=== PATIENT | female | born 1955 | race African-American/Black ===

== ENCOUNTER → 2017-10-26 | Outpatient (CLI) | payer OTHER ==
[~2017-10-26] MED LIST: BIOT1000 PO; BIOT10TA PO; CALCTAB80 PO; CIME400T; CIME400T PO; ESTR2TAB; ESTR2TAB4 PO; MULTTAB67 PO; VITA-142 PO; VITA500T83 PO
--- NOTE | 2017-10-26 15:14 | RADRPT ---
EXAM DATE/TIME: 10/26/2017 12:03 [place] COMPARISON: No previous studies available for comparison. INDICATIONS : Evaluate for pneumonia, pneumothorax or communicable disease pre surgery 11/07/17 Excision right ventral vulvar mass MEDICAL HISTORY : Cardiovascular disease. SURGICAL HISTORY : None. ENCOUNTER: Initial ACUITY: 1 day PAIN SCORE: 0/10 LOCATION: Bilateral chest FINDINGS: Frontal and lateral views of the chest demonstrates a normal-sized cardiac silhouette with tortuous d escending thoracic aorta secondary to the scoliosis. The lungs are clear without effusion, consolidat ion, or pneumothorax. Bones and soft tissues demonstrate no acute finding. There is severe S-shaped t horacic and lumbar scoliosis. CONCLUSION: 1. No acute cardiopulmonary abnormality is identified. 2. Severe S-shaped thoracolumbar scoliosis. Ezequiel Pratt MD on October 26, 2017 at 15:10 Board Certified Radiologist. This report was verified electronically.
--- NOTE | 2017-10-27 20:01 | EKG ---
Date Performed: 10/26/2017 Time Performed: 11:15:59 PTAGE: 62 years EKG: Sinus rhythm POSSIBLE LEFT ATRIAL ENLARGEMENT BORDERLINE LEFT AXIS DEVIATION INCOMPLETE RIGHT BUNDLE BRANCH BLOCK BORDERLINE ECG Since the PREVIOUS TRACING , no significant change noted PREVIOUS TRACIN01/10/2006 00.46 DOCTOR: Vlad Dickson Interpretating Date/Time 10/27/2017 19:59:36
== END ==
LOC: CPRE 10:53
PROVIDERS: ATTEND Obstetrics & Gynecology Gynecologic Oncology
DX: Z01.810 Encounter for preprocedural cardiovascular examination (principal); Z01.811 Encounter for preprocedural respiratory examination; N90.89 Other specified noninflammatory disorders of vulva and perineum; R94.31 Abnormal electrocardiogram [ECG] [EKG]
CPT/HCPCS: 71046; 93005

== ENCOUNTER → 2017-11-07 | Day surgery (SDC) | payer OTHER ==
[~2017-11-07] VITALS: Ht 162.6 cm; Wt 91.4 kg
[~2017-11-07] MED LIST changes: -BIOT1000 PO; +CHLORHEXIDINE GLUCONATE 2 % 1 PACK (2 CLOTHS) TOPICAL PRN; -CIME400T; +DEXAMETHASONE SOD PHOS 4 MG/ML VIAL IV ONE; +DO NOT ADM ANY ANTICOAGULANT DRUGS PRN; -ESTR2TAB; +KETOROLAC TROMETHAMINE 30 MG/ML (IVP) VIAL IV PUSH ONE; +KETOROLAC TROMETHAMINE 30 MG/ML (IVP) VIAL ONE; +LACTATED RINGER'S 1000 ML INJ 1,000 ML IV ONE; +LACTATED RINGER'S 1000 ML IV PRN; +LIDOCAINE 1%/EPINEPHrine 1:100,000 SOLN 30 ML VIAL ONE; +LIDOCAINE HCL 1% PF 5 ML SYRINGE OTHER ONE; +METOPROLOL TARTRATE 25 MG TAB PO PRN; +MIDAZOLAM HCL 2 MG/2 ML VIAL ONE; +ONDANSETRON HCL 4 MG/2 ML VIAL IV ONE; +PHENYLEPH/NS 1000 MCG/10 ML SYR IV ONE; +POVIDONE IODINE 5% (ANTISEPSIS KIT) 4 APPLICATIONS EACH NARE PRN; +PROPOFOL 200 MG/20 ML AMP IV ONE; +ROCURONIUM INJ 50 MG/5 ML SYRINGE IV PUSH ONE; +SODIUM CHLORID 0.9% 500 ML IV PRN; +ceFAZolin INJ 1,000 MG VIAL IV ONE; +ePHEDrine/NS 25 MG/5 ML SYRINGE IV ONE; +oxyCODONE/ACETAMINOPHEN 5 MG/325 MG TAB PO PRN
--- NOTE | 2017-11-07 14:40 | MP ---
cc: Jane Pollack MD, Zachary S MD DATE OF OPERATION: 11/07/2017 PREOPERATIVE DIAGNOSIS: Right ventral vulvovaginal mass. POSTOPERATIVE DIAGNOSIS: Right ventral vulvovaginal mass. PROCEDURE: Examination under anesthesia, excision of right vulvovaginal mass. SURGEON: Jane Pollack MD [employer] CLEAN[employer] SUPERVISOR: Eunice certified surgical tech/first assistant. ANESTHESIA: Laryngeal mask anesthesia. ESTIMATED BLOOD LOSS: 20 mL HISTORY: A 62-year-old female who has noticed a prominent bulge or mass-like effect in the ventral right vulvovaginal area that has gradually increased. She would estimate many months, perhaps even 2 years, but became more prominent in recent months, to the point that it is troubling her and the mass effect is causing a deviation to the stream of her urine when she voids and she sought evaluation. She was seen and evaluated initially by Dr. Rome Raya and was referred to [facility] where she was counseled. CT imaging did not show any overt evidence of metastatic disease and it confirmed that this was not an unusual manifestation of a hernia. No adenopathy or other abnormalities. The mass itself clinically measured about 2.5 cm in diameter. The consistency was somewhat spongy, compressible, but solid, not cystic in nature. It had a smooth surface and smooth borders. She was seen in the preop holding area where the findings are again reviewed. The plan of care was discussed. Questions were asked and answered. She expressed good understanding and agreed. FINDINGS: On exam under anesthesia, the findings were as described on the office exam, approximately 2.5 cm, smooth walled, spongy mass encapsulated in the right ventral vulvovaginal area, possibly an inflamed obstructed periurethral gland or [place] gland. It is uncertain if it is inflammatory or neoplastic and as per our discussion, the plan is for excision. PROCEDURE: She was taken to the operating room and placed in dorsal lithotomy position, after laryngeal mask anesthesia was administered, timeout was undertaken. She was identified by site recognition, hospital ID bracelet and the proposed procedure was reviewed and confirmed. Exam under anesthesia was performed with findings as described above. She was prepped and draped in sterile fashion. Salgado catheter placed in the bladder. Surgical marker was used to josé miguel an area for incision just inside the introitus. Lidocaine, epinephrine was injected in subcutaneous tissue and incision was made overlying the mass. Sharp dissection was used circumferentially to dissect circumferentially around the capsule of the mass and this was continued circumferentially and it was fairly free, filmy adhesions until the base of it where the tissue was more vascular and fibrous and this dissection was extended beyond the mass itself to include what was thought to probably be the gland that was the origin of this mass and a clamp was placed across the base of it and it was removed with sharp dissection. 3-0 Vicryl suture was used to render this hemostatic and the deep layers of the incision bed were reapproximated with interrupted 3-0 Vicryl sutures until there was complete hemostasis and the skin and mucosal edges were in close proximity without tension. The skin and mucosal edges were then closed with interrupted 3-0 Vicryl sutures which rendered it completely hemostatic, well approximated. The mass had been removed in its entirety and there was good cosmetic result with the incision line inside the introitus. The vagina was irrigated. There were no remaining foreign objects in the vagina. Preliminary and final counts were correct. She was returned to dorsal supine position and was pending reversal of anesthesia when I left the operating room to precede her to the postanesthesia care unit. MD ALLEN Vazquez/ALYSON , 02:14 PM , 02:38 PM
[2017-11-07 15:54] VITALS: BP 147/83; PULSE 70; RESP 20; TEMP 97.7; O2SAT 100
== END | disposition home or self-care (01) ==
LOC: HSDC 10:56
PROVIDERS: ATTEND Obstetrics & Gynecology Gynecologic Oncology
DX: N90.89 Other specified noninflammatory disorders of vulva and perineum (principal)
CPT/HCPCS: 00940; 11423; 86850; 86900; 86901; 88307; J0690; J1100; J2250; J2370; J2405; J3010; J7120; 88305; J1885